=== PATIENT | male | born 1960 | race Caucasian/White ===

== ENCOUNTER → 2024-04-24 | Outpatient (CLI) | payer MEDICARE, SELFPAY ==
--- NOTE | 2024-04-24 12:30 | CT_ITS ---
STUDY: CT LEFT SHOULDER REASON FOR EXAM: Male, 64 years old. OSTEO LEFT SHOULDER RADIATION DOSAGE (If Supplied By Facility): CTDIvol = ( 24.48 ) mGy, DLP = ( 574.93 ) mGycm TECHNIQUE: The patient was scanned in a multi detector CT scanner. High resolution transaxial imaging was performed without the administration of intravenous contrast material. Sagittal and coronal images were reconstructed. Individualized dose optimization techniques were used for this CT. COMPARISON: None. FINDINGS: There is severe glenohumeral arthrosis with joint space narrowing, marginal osteophyte formation, and subchondral cyst formation in the superior glenoid. Intact glenoid neck and visualized scapula. Intact humeral head, neck and tuberosities. Normal coracoid process. Intact visualized lateral clavicle. There is acromioclavicular arthrosis with cystic change in the distal clavicle. There is a Type II morphology (curved), with a neutral orientation. Normal visualized muscles and soft tissue structures. CT/Extremity Upper without Contra IMPRESSION: Severe glenohumeral arthrosis. Acromioclavicular arthrosis with cystic changes in the distal clavicle. Electronically Signed: Jose R Rubio MD at 13:35 EST ,
== END | disposition home or self-care (01) ==
LOC: CT 11:56
PROVIDERS: PCP Family Medicine; Referring Provider Student in an Organized Health Care Education/Training Program; Visit Provider Student in an Organized Health Care Education/Training Program
DX: M19.012 Primary osteoarthritis, left shoulder (principal); M25.512 Pain in left shoulder

== ENCOUNTER 2024-05-18 05:05 | Day surgery (SDC) | payer MEDICARE, SELFPAY ==
--- NOTE | 2024-04-24 12:22 | EKG12_ITS ---
Test Reason : PRE OP Blood Pressure : */* mmHG Vent. Rate : 74 BPM Atrial Rate : 74 BPM P-R Int : 178 ms QRS Dur : 78 ms QT Int : 384 ms P-R-T Axes : 40 -12 23 degrees QTcB Int : 426 ms Normal sinus rhythm Septal infarct , age undetermined Abnormal ECG Confirmed by ERMIAS KUMARI, PORSHA ([id number]), web editor DUANE COOPER ([id number]) on 04/24/2024 2:24:45 PM Referred By: YRN Confirmed By: PORSHA MONSON MD
--- NOTE | 2024-04-28 16:10 | PAT.ANESEVAL ---
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 When Was Last Pacemaker Check QUESTION #4 FULL TEXT: You/Your Family Experience fever (hyperthermia) with Anesthesia Last Oral Intake Last Oral intake: Last Oral Intake NPO since Meds taken in AM with sips of water? Meds patient instructed to take am of surgery PONV PONV - maintenance machine repairer: PONV - maintenance machine repairer Female No 04/19/24 13:27 HX of Motion Sickness No 04/19/24 13:27 HX of N/V After Surgery No 04/19/24 13:27 Non-Smoker No 04/19/24 13:27 Duration of Surgery greater Yes 04/19/24 13:27 than 60 minutes Number of Risk Factors 1 04/19/24 13:27 PONV Score Low Risk 04/19/24 13:27 Respiratory Assessment Respiratory Assessment - maintenance machine repairer: Respiratory Tract Infection Hx - maintenance machine repairer Hx Respiratory Tract Infection No 04/19/24 13:27 STOP Sleep Apnea STOP Sleep Apnea - maintenance machine repairer: STOP Sleep Apnea - maintenance machine repairer Hx Hypertension Yes: CONTROLLED WITH MEDS 04/19/24 13:27 Hx Sleep Apnea No 04/19/24 13:27 CPAP BIPAP Do you snore loudly (louder Yes 04/19/24 13:27 than talking or can be heard Do you often feel tired/ No 04/19/24 13:27 fatigued/ sleepy during daytime? Has anyone observed you stop No 04/19/24 13:27 breathing during sleep? STOP Results Positive 04/19/24 13:27 QUESTION #5 FULL TEXT : Do you snore loudly (louder than talking or can be heard through closed doors)? 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 Specify any problems Hx of Preganancy in last 3 N/A 04/19/24 13:27 Months Nurse Filling Out Transfusion DSCHRIBER 04/19/24 13:27 & Questions: Date: 04/19/24 04/19/24 13:27 Time: 13:29 04/19/24 13:27 Patient unable to answer at this time (ie. confused, unrespo /Reproduction History /Reproductive History - maintenance machine repairer: /Reproductive Hx- maintenance machine repairer Hx Now No 04/19/24 13:27 Gestational Age (in weeks): EDC: Hx Hx Para Hx Section SAB No 04/19/24 13:27 ON LICENSE OF [facility] Medical History (Updated 04/19/24 @ 13:35 by Emilee Ellison) Wears glasses Wears partial dentures Wears dentures Marijuana use Alcohol use Thyroid disease Rheumatoid arthritis Fatty liver Easy bruising Back pain Gastric reflux Smoker History of pain when walking Hypertension Home Medications ?Medication ?Instructions ?Recorded ?Last Taken ?Type amlodipine 10 mg tablet 10 mg PO DAILY 04/19/24 Unknown History ascorbic acid (vitamin C) 500 mg 1 g PO DAILY 04/19/24 Unknown History tablet (C-500) calcium 315 mg (as 1 tab PO DAILY 04/19/24 Unknown History citrate)-vitamin D3 6.25 mcg (250 unit) tablet (Citracal + Vitamin D Maximum) cinnamon bark 500 mg capsule 1,000 mg PO BID 04/19/24 Unknown History (Cinnamon) echinacea 125 mg capsule 125 mg PO DAILY 04/19/24 Unknown History levothyroxine 125 mcg tablet 125 mcg PO DAILY 04/19/24 Unknown History lisinopril 20 1 tab PO BID 04/19/24 Unknown History mg-hydrochlorothiazide 12.5 mg tablet multivitamin (Daily Multi-Vitamin 1 tab PO DAILY 04/19/24 Unknown History tablet) omega-3 fatty acids 500 mg PO DAILY 04/19/24 Unknown History omeprazole 20 mg capsule,delayed 20 mg PO DAILY 04/19/24 Unknown History release Allergy/AdvReac Type Severity Reaction Status Date / Time No Known Allergies Allergy Verified 04/19/24 13:19 Surgical History (Updated 04/19/24 @ 13:35 by Emilee Ellison) Hx of colonoscopy Social History Smoking Status: Current every day smoker tobacco type: cigarettes Audit: Pertinent Findings Pertinent Findings EKG Perinent findings: April 24, 2024. Normal sinus rhythm. Septal infarct age undetermined. Recommendation Anesthesia Recommendation Anesthesia recommendation: OPTIMIZED for anesthesia
[2024-04-29 08:48] LABS: Absolute Lymphocyte Count 2.14 X10^3/uL (0.83-4.51); Absolute Neutrophil Count 4.3 X10^3/uL (2.0-7.7); Basophil# 0.09 X10^3/uL; Basophil% 1.2 % (0-1); Eosinophil# 0.22 X10^3/uL; Eosinophils% 2.9 % (0-5); Hematocrit 45.1 % (40-54); Lymphocyte # 2.14 X10^3/ul (0.83-4.51); Lymphocyte % 28.2 % (19-41); Mean Corp Hgb Conc 35.5 g/dL (32-36); Mean Corpuscular Hgb 33.8 pg (27.0-32.0); Mean Corpuscular Volume 95.3 fL (80-94); Mean Platelet Vol. 9.6 fl (6.2-12.0); Monocyte# 0.81 X10^3/uL; Monocyte% 10.7 % (0-10); NRBC Flagged by Analyzer 0 % (0-5); Neutrophil # 4.32 X10^3/uL (2.7-7.7); Neutrophil % 56.7 % (47-70); Platelet Count 290 K/mm3 (150-450); RBC Distribution Width CV 13.3 % (11.6-14.6); RBC Distribution Width SD 47.2 fl (35.1-43.9); Red Blood Count 4.73 M/mm3 (4.6-6.2); White Blood Count 7.6 K/mm3 (4.4-11.0)
[2024-04-29 08:55] LABS: Prothrombin Time (Protime)PT. 12.9 SECONDS (11.7-14.9)
[2024-04-29 08:56] LABS: Partial Thromboplast Time 26.7 Seconds (24.1-36.2)
[2024-04-29 09:24] LABS: AST(SGOT) 42 U/L (15-37); Alanine Aminotransfer ALT/SGPT 56 U/L (16-61); Albumin, Serum 4.4 g/dL (3.2-5.0); Alkaline Phosphatase 47 U/L (45-117); Bilirubin, Direct 0.31 mg/dL (0.00-0.30); Globulin 4.3 g/dL (2.2-4.2); Magnesium 2.2 mg/dL (1.6-2.6); Protein, Total 8.7 g/dL (6.4-8.2)
[2024-04-29 10:01] LABS: Anion Gap 11 (5-15); BUN 13 mg/dL (7-18); BUN/Creat Ratio 15.9 RATIO (10-20); Calcium,Total 10.1 mg/dL (8.5-10.1); Chloride 92 mmol/L (98-107); Creatinine, Serum 0.82 mg/dL (0.70-1.30); EST Glomerular Filtration Rate 100 mL/min (>60); Est Glom Filt Rate - Afr Amer 121 mL/min (>60); Glucose 120 mg/dL (74-106); Potassium 3.9 mmol/L (3.5-5.1); Sodium Level 129 mmol/L (136-145)
--- NOTE | 2024-05-01 10:33 | PAT.ANE_ITS ---
Pre-Assessment Diagnosis/Proposed Procedure Planned Operative Procedure(s): LEFT REVERSE TOTAL SHOULDER ARTHROPLASTY Anesthesia History Anesthesia History - invasive physician: Anesthesia History - invasive physician Hx Hospitalization No 04/19/24 13:27 Any Problems With Anesthesia No 04/19/24 13:27 Cholinesterase deficiency No 04/19/24 13:27 You/Your Family Experience No 04/19/24 13:27 fever (hyperthermia) with Relationship Recent Exposure to Contagious Disease Does patient have nerve No 04/19/24 13:27 stimulator Patient instructed to have device shut off --Does patient have Pacemaker or ICD? When Was Last Pacemaker Check QUESTION #4 FULL TEXT: You/Your Family Experience fever (hyperthermia) with Anesthesia Last Oral Intake Last Oral intake: Last Oral Intake NPO since Meds taken in AM with sips of water? Meds patient instructed to take am of surgery PONV PONV - invasive physician: PONV - invasive physician Female No 04/19/24 13:27 HX of Motion Sickness No 04/19/24 13:27 HX of N/V After Surgery No 04/19/24 13:27 Non-Smoker No 04/19/24 13:27 Duration of Surgery greater Yes 04/19/24 13:27 than 60 minutes Number of Risk Factors 1 04/19/24 13:27 PONV Score Low Risk 04/19/24 13:27 Respiratory Assessment Respiratory Assessment - invasive physician: Respiratory Tract Infection Hx - invasive physician Hx Respiratory Tract Infection No 04/19/24 13:27 STOP Sleep Apnea STOP Sleep Apnea - invasive physician: STOP Sleep Apnea - invasive physician Hx Hypertension Yes: CONTROLLED WITH MEDS 04/19/24 13:27 Hx Sleep Apnea No 04/19/24 13:27 CPAP BIPAP Do you snore loudly (louder Yes 04/19/24 13:27 than talking or can be heard Do you often feel tired/ No 04/19/24 13:27 fatigued/ sleepy during daytime? Has anyone observed you stop No 04/19/24 13:27 breathing during sleep? STOP Results Positive 04/19/24 13:27 QUESTION #5 FULL TEXT : Do you snore loudly (louder than talking or can be heard through closed doors)? Tobacco Use History Tobacco Use History - invasive physician: Tobacco Use History - invasive physician Tobacco Use Smoking Status Current every day smoker 04/19/24 13:27 Hx Tobacco Use Yes 04/19/24 13:27 Years Smoking Packs Smoked per Day Smoking Cessation Date was within the last 15 years Hx Smoking Cessation Date Hx Smoking Cessation Counseling Hematologic Medial History Hematologic Hx - invasive physician: Hematologic Medical Hx - manager change Hx of Blood Transfusion No 04/19/24 13:27 Hx of Transfusion in last 3 No 04/19/24 13:27 Months Date of Last Transfusion (if within last 3 months) Ever experience any problems No 04/19/24 13:27 with transfusion(s)? Specify any problems Hx of Preganancy in last 3 N/A 04/19/24 13:27 Months Nurse Filling Out Transfusion DSCHRIBER 04/19/24 13:27 & Questions: Date: 04/19/24 04/19/24 13:27 Time: 13:29 04/19/24 13:27 Patient unable to answer at this time (ie. confused, unrespo /Reproduction History /Reproductive History - invasive physician: /Reproductive Hx- invasive physician Hx Now No 04/19/24 13:27 Gestational Age (in weeks): EDC: Hx Hx Para Hx Section SAB No 04/19/24 13:27 [facility] Medical History (Updated 04/19/24 @ 13:35 by Emilee Ellison) Wears glasses Wears partial dentures Wears dentures Marijuana use Alcohol use Thyroid disease Rheumatoid arthritis Fatty liver Easy bruising Back pain Gastric reflux Smoker History of pain when walking Hypertension Home Medications ?Medication ?Instructions ?Recorded ?Last Taken ?Type amlodipine 10 mg tablet 10 mg PO DAILY 04/19/24 Unknown History ascorbic acid (vitamin C) 500 mg 1 g PO DAILY 04/19/24 Unknown History tablet (C-500) calcium 315 mg (as 1 tab PO DAILY 04/19/24 Unknown History citrate)-vitamin D3 6.25 mcg (250 unit) tablet (Citracal + Vitamin D Maximum) cinnamon bark 500 mg capsule 1,000 mg PO BID 04/19/24 Unknown History (Cinnamon) echinacea 125 mg capsule 125 mg PO DAILY 04/19/24 Unknown History levothyroxine 125 mcg tablet 125 mcg PO DAILY 04/19/24 Unknown History lisinopril 20 1 tab PO BID 04/19/24 Unknown History mg-hydrochlorothiazide 12.5 mg tablet multivitamin (Daily Multi-Vitamin 1 tab PO DAILY 04/19/24 Unknown History tablet) omega-3 fatty acids 500 mg PO DAILY 04/19/24 Unknown History omeprazole 20 mg capsule,delayed 20 mg PO DAILY 04/19/24 Unknown History release Allergy/AdvReac Type Severity Reaction Status Date / Time No Known Allergies Allergy Verified 04/19/24 13:19 Surgical History (Updated 04/19/24 @ 13:35 by Emilee Ellison) Hx of colonoscopy Social History Smoking Status: Current every day smoker tobacco type: cigarettes Audit: Pertinent Findings HISTORY of Pertinent Findings History of Pertinent Findings: EKG Pertinent Findings EKG Perinent findings April 24, 2024. Normal 04/28/24 16:10 sinus rhythm. Septal infarct age undetermined. Pertinent Findings Additional pertinent findings: Patients sodium is 129, in addition to other elevated liver function markers (tbili, dbili, AST). His previous sodium we have in our chart is from 2013 where it was normal. He has a hx of fatty liver disease and alcohol use. Current Visit Impressions Current Visit Impressions: Patients sodium is 129, in addition to other elevated liver function markers (tbili, dbili, AST). His previous sodium we have in our chart is from 2013 where it was normal. He has a hx of fatty liver disease and alcohol use. I would recommend that the patient follow up with his primary care physician in regards to these findings, and potentially see a vamp presser as he could have underlying livery dysfunction. Recommendation Anesthesia Recommendation Anesthesia recommendation: F/U recommended (patient should follow up with PCP in regards to hyponatremia with some elevated markers of liver dysfunx, given hx of alcohol use and fatty liver disease. ) Follow up Details Consult Recommendation: Yes Consult Rec Details: primary care physician Outside Record Recommendation: Yes Outside Record Rec Details: if the patient has had any labs done since 2013 it would be great to have those as a reference to see if this is acute hyponatremia or chronic hyponatremia
--- NOTE | 2024-05-01 15:56 | PAT.ANE_ITS ---
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 When Was Last Pacemaker Check QUESTION #4 FULL TEXT: You/Your Family Experience fever (hyperthermia) with Anesthesia Last Oral Intake Last Oral intake: Last Oral Intake NPO since Meds taken in AM with sips of water? Meds patient instructed to take am of surgery PONV PONV - clinical program consultant: PONV - clinical program consultant Female No 04/19/24 13:27 HX of Motion Sickness No 04/19/24 13:27 HX of N/V After Surgery No 04/19/24 13:27 Non-Smoker No 04/19/24 13:27 Duration of Surgery greater Yes 04/19/24 13:27 than 60 minutes Number of Risk Factors 1 04/19/24 13:27 PONV Score Low Risk 04/19/24 13:27 Respiratory Assessment Respiratory Assessment - clinical program consultant: Respiratory Tract Infection Hx - clinical program consultant Hx Respiratory Tract Infection No 04/19/24 13:27 STOP Sleep Apnea STOP Sleep Apnea - clinical program consultant: STOP Sleep Apnea - clinical program consultant Hx Hypertension Yes: CONTROLLED WITH MEDS 04/19/24 13:27 Hx Sleep Apnea No 04/19/24 13:27 CPAP BIPAP Do you snore loudly (louder Yes 04/19/24 13:27 than talking or can be heard Do you often feel tired/ No 04/19/24 13:27 fatigued/ sleepy during daytime? Has anyone observed you stop No 04/19/24 13:27 breathing during sleep? STOP Results Positive 04/19/24 13:27 QUESTION #5 FULL TEXT : Do you snore loudly (louder than talking or can be heard through closed doors)? 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 Specify any problems Hx of Preganancy in last 3 N/A 04/19/24 13:27 Months Nurse Filling Out Transfusion DSCHRIBER 04/19/24 13:27 & Questions: Date: 04/19/24 04/19/24 13:27 Time: 13:29 04/19/24 13:27 Patient unable to answer at this time (ie. confused, unrespo /Reproduction History /Reproductive History - clinical program consultant: /Reproductive Hx- clinical program consultant Hx Now No 04/19/24 13:27 Gestational Age (in weeks): EDC: Hx Hx Para Hx Section SAB No 04/19/24 13:27 [facility] Medical History (Updated 04/19/24 @ 13:35 by Emilee Ellison) Wears glasses Wears partial dentures Wears dentures Marijuana use Alcohol use Thyroid disease Rheumatoid arthritis Fatty liver Easy bruising Back pain Gastric reflux Smoker History of pain when walking Hypertension Home Medications ?Medication ?Instructions ?Recorded ?Last Taken ?Type amlodipine 10 mg tablet 10 mg PO DAILY 04/19/24 Unknown History ascorbic acid (vitamin C) 500 mg 1 g PO DAILY 04/19/24 Unknown History tablet (C-500) calcium 315 mg (as 1 tab PO DAILY 04/19/24 Unknown History citrate)-vitamin D3 6.25 mcg (250 unit) tablet (Citracal + Vitamin D Maximum) cinnamon bark 500 mg capsule 1,000 mg PO BID 04/19/24 Unknown History (Cinnamon) echinacea 125 mg capsule 125 mg PO DAILY 04/19/24 Unknown History levothyroxine 125 mcg tablet 125 mcg PO DAILY 04/19/24 Unknown History lisinopril 20 1 tab PO BID 04/19/24 Unknown History mg-hydrochlorothiazide 12.5 mg tablet multivitamin (Daily Multi-Vitamin 1 tab PO DAILY 04/19/24 Unknown History tablet) omega-3 fatty acids 500 mg PO DAILY 04/19/24 Unknown History omeprazole 20 mg capsule,delayed 20 mg PO DAILY 04/19/24 Unknown History release Allergy/AdvReac Type Severity Reaction Status Date / Time No Known Allergies Allergy Verified 04/19/24 13:19 Surgical History (Updated 04/19/24 @ 13:35 by Emilee Ellison) Hx of colonoscopy Social History Smoking Status: Current every day smoker tobacco type: cigarettes Audit: Pertinent Findings HISTORY of Pertinent Findings History of Pertinent Findings: EKG Pertinent Findings EKG Perinent findings April 24, 2024. Normal 04/28/24 16:10 sinus rhythm. Septal infarct age undetermined. Additional Pertinent Findings Additional pertinent findings Patients sodium is 129, in 05/01/24 10:47 addition to other elevated liver function markers ( tbili, dbili, AST). His previous sodium we have in our chart is from 2013 where it was normal. He has a hx of fatty liver disease and alcohol use. Pertinent Findings EKG Perinent findings: EKG done on April 24, 2024 shows normal sinus rhythm, septal infarct age on determined Additional pertinent findings: Patients sodium is 129, in addition to other elevated liver function markers (tbili, dbili, AST). His previous sodium we have in our chart is from 2013 where it was normal. He has a hx of fatty liver dis ease and alcohol use. Recommendation Anesthesia Recommendation Anesthesia recommendation: F/U recommended Follow up Details Cadiac/Pulmonary Imaging Recommendation: Yes Cadiac/Pulmonary Imaging Rec Details: can consider obtaining an echo vs stress test given patients abnormal EKG findings with age undetermined septal infarct Consult Recommendation: Yes Consult Rec Details: Patients sodium is 129, in addition to other elevated liver function markers (tbili, dbili, AST). His previous sodium we have in our chart is from 2013 where it was normal. He has a hx of fatty liver disease and alcohol use.
--- NOTE | 2024-05-02 06:07 | PAT.ANESEVAL ---
Pre-Assessment Diagnosis/Proposed Procedure Planned Operative Procedure(s): LEFT REVERSE TOTAL SHOULDER ARTHROPLASTY Anesthesia History Anesthesia History - mortgage loan specialist: Anesthesia History - mortgage loan specialist Hx Hospitalization No 04/19/24 13:27 Any Problems With Anesthesia No 04/19/24 13:27 Cholinesterase deficiency No 04/19/24 13:27 You/Your Family Experience No 04/19/24 13:27 fever (hyperthermia) with Relationship Recent Exposure to Contagious Disease Does patient have nerve No 04/19/24 13:27 stimulator Patient instructed to have device shut off --Does patient have Pacemaker or ICD? When Was Last Pacemaker Check QUESTION #4 FULL TEXT: You/Your Family Experience fever (hyperthermia) with Anesthesia Last Oral Intake Last Oral intake: Last Oral Intake NPO since Meds taken in AM with sips of water? Meds patient instructed to take am of surgery PONV PONV - mortgage loan specialist: PONV - mortgage loan specialist Female No 04/19/24 13:27 HX of Motion Sickness No 04/19/24 13:27 HX of N/V After Surgery No 04/19/24 13:27 Non-Smoker No 04/19/24 13:27 Duration of Surgery greater Yes 04/19/24 13:27 than 60 minutes Number of Risk Factors 1 04/19/24 13:27 PONV Score Low Risk 04/19/24 13:27 Respiratory Assessment Respiratory Assessment - mortgage loan specialist: Respiratory Tract Infection Hx - mortgage loan specialist Hx Respiratory Tract Infection No 04/19/24 13:27 STOP Sleep Apnea STOP Sleep Apnea - mortgage loan specialist: STOP Sleep Apnea - mortgage loan specialist Hx Hypertension Yes: CONTROLLED WITH MEDS 04/19/24 13:27 Hx Sleep Apnea No 04/19/24 13:27 CPAP BIPAP Do you snore loudly (louder Yes 04/19/24 13:27 than talking or can be heard Do you often feel tired/ No 04/19/24 13:27 fatigued/ sleepy during daytime? Has anyone observed you stop No 04/19/24 13:27 breathing during sleep? STOP Results Positive 04/19/24 13:27 QUESTION #5 FULL TEXT : Do you snore loudly (louder than talking or can be heard through closed doors)? Tobacco Use History Tobacco Use History - mortgage loan specialist: Tobacco Use History - mortgage loan specialist Tobacco Use Smoking Status Current every day smoker 04/19/24 13:27 Hx Tobacco Use Yes 04/19/24 13:27 Years Smoking Packs Smoked per Day Smoking Cessation Date was within the last 15 years Hx Smoking Cessation Date Hx Smoking Cessation Counseling Hematologic Medial History Hematologic Hx - mortgage loan specialist: Hematologic Medical Hx - manager quantitative Hx of Blood Transfusion No 04/19/24 13:27 Hx of Transfusion in last 3 No 04/19/24 13:27 Months Date of Last Transfusion (if within last 3 months) Ever experience any problems No 04/19/24 13:27 with transfusion(s)? Specify any problems Hx of Preganancy in last 3 N/A 04/19/24 13:27 Months Nurse Filling Out Transfusion DSCHRIBER 04/19/24 13:27 & Questions: Date: 04/19/24 04/19/24 13:27 Time: 13:29 04/19/24 13:27 Patient unable to answer at this time (ie. confused, unrespo /Reproduction History /Reproductive History - mortgage loan specialist: /Reproductive Hx- mortgage loan specialist Hx Now No 04/19/24 13:27 Gestational Age (in weeks): EDC: Hx Hx Para Hx Section SAB No 04/19/24 13:27 [facility] Medical History (Updated 04/19/24 @ 13:35 by Emilee Ellison) Wears glasses Wears partial dentures Wears dentures Marijuana use Alcohol use Thyroid disease Rheumatoid arthritis Fatty liver Easy bruising Back pain Gastric reflux Smoker History of pain when walking Hypertension Home Medications ?Medication ?Instructions ?Recorded ?Last Taken ?Type amlodipine 10 mg tablet 10 mg PO DAILY 04/19/24 Unknown History ascorbic acid (vitamin C) 500 mg 1 g PO DAILY 04/19/24 Unknown History tablet (C-500) calcium 315 mg (as 1 tab PO DAILY 04/19/24 Unknown History citrate)-vitamin D3 6.25 mcg (250 unit) tablet (Citracal + Vitamin D Maximum) cinnamon bark 500 mg capsule 1,000 mg PO BID 04/19/24 Unknown History (Cinnamon) echinacea 125 mg capsule 125 mg PO DAILY 04/19/24 Unknown History levothyroxine 125 mcg tablet 125 mcg PO DAILY 04/19/24 Unknown History lisinopril 20 1 tab PO BID 04/19/24 Unknown History mg-hydrochlorothiazide 12.5 mg tablet multivitamin (Daily Multi-Vitamin 1 tab PO DAILY 04/19/24 Unknown History tablet) omega-3 fatty acids 500 mg PO DAILY 04/19/24 Unknown History omeprazole 20 mg capsule,delayed 20 mg PO DAILY 04/19/24 Unknown History release Allergy/AdvReac Type Severity Reaction Status Date / Time No Known Allergies Allergy Verified 04/19/24 13:19 Surgical History (Updated 04/19/24 @ 13:35 by Emilee Ellison) Hx of colonoscopy Social History Smoking Status: Current every day smoker tobacco type: cigarettes Audit: Pertinent Findings HISTORY of Pertinent Findings History of Pertinent Findings: EKG Pertinent Findings EKG Perinent findings EKG done on April 24, 2024 05/01/24 16:05 shows normal sinus rhythm, septal infarct age on determined EKG Perinent findings April 24, 2024. Normal 04/28/24 16:10 sinus rhythm. Septal infarct age undetermined. Additional Pertinent Findings Additional pertinent findings Patients sodium is 129, in 05/01/24 16:05 addition to other elevated liver function markers ( tbili, dbili, AST). His previous sodium we have in our chart is from 2013 where it was normal. He has a hx of fatty liver disease and alcohol use. Additional pertinent findings Patients sodium is 129, in 05/01/24 10:47 addition to other elevated liver function markers ( tbili, dbili, AST). His previous sodium we have in our chart is from 2013 where it was normal. He has a hx of fatty liver disease and alcohol use. Recommendation Anesthesia Recommendation Anesthesia recommendation: OPTIMIZED for anesthesia (appears patients sodium levels have been stably on the lower side after reviewing previous levels) Follow up Details BMP Recommendation: No Cadiac/Pulmonary Imaging Recommendation: No
--- NOTE | 2024-05-10 08:13 | PAT.ANE_ITS ---
Pre-Assessment Diagnosis/Proposed Procedure Planned Operative Procedure(s): LEFT REVERSE TOTAL SHOULDER ARTHROPLASTY Anesthesia History Anesthesia History - manager general: Anesthesia History - manager general Hx Hospitalization No 04/19/24 13:27 Any Problems With Anesthesia No 04/19/24 13:27 Cholinesterase deficiency No 04/19/24 13:27 You/Your Family Experience No 04/19/24 13:27 fever (hyperthermia) with Relationship Recent Exposure to Contagious Disease Does patient have nerve No 04/19/24 13:27 stimulator Patient instructed to have device shut off --Does patient have Pacemaker or ICD? When Was Last Pacemaker Check QUESTION #4 FULL TEXT: You/Your Family Experience fever (hyperthermia) with Anesthesia Last Oral Intake Last Oral intake: Last Oral Intake NPO since Meds taken in AM with sips of water? Meds patient instructed to take am of surgery PONV PONV - manager general: PONV - manager general Female No 04/19/24 13:27 HX of Motion Sickness No 04/19/24 13:27 HX of N/V After Surgery No 04/19/24 13:27 Non-Smoker No 04/19/24 13:27 Duration of Surgery greater Yes 04/19/24 13:27 than 60 minutes Number of Risk Factors 1 04/19/24 13:27 PONV Score Low Risk 04/19/24 13:27 Respiratory Assessment Respiratory Assessment - manager general: Respiratory Tract Infection Hx - manager general Hx Respiratory Tract Infection No 04/19/24 13:27 STOP Sleep Apnea STOP Sleep Apnea - manager general: STOP Sleep Apnea - manager general Hx Hypertension Yes: CONTROLLED WITH MEDS 04/19/24 13:27 Hx Sleep Apnea No 04/19/24 13:27 CPAP BIPAP Do you snore loudly (louder Yes 04/19/24 13:27 than talking or can be heard Do you often feel tired/ No 04/19/24 13:27 fatigued/ sleepy during daytime? Has anyone observed you stop No 04/19/24 13:27 breathing during sleep? STOP Results Positive 04/19/24 13:27 QUESTION #5 FULL TEXT : Do you snore loudly (louder than talking or can be heard through closed doors)? 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 Specify any problems Hx of Preganancy in last 3 N/A 04/19/24 13:27 Months Nurse Filling Out Transfusion DSCHRIBER 04/19/24 13:27 & Questions: Date: 04/19/24 04/19/24 13:27 Time: 13:29 04/19/24 13:27 Patient unable to answer at this time (ie. confused, unrespo /Reproduction History /Reproductive History - manager general: /Reproductive Hx- manager general Hx Now No 04/19/24 13:27 Gestational Age (in weeks): EDC: Hx Hx Para Hx Section SAB No 04/19/24 13:27 [facility] Medical History (Updated 04/19/24 @ 13:35 by Emilee Ellison) Wears glasses Wears partial dentures Wears dentures Marijuana use Alcohol use Thyroid disease Rheumatoid arthritis Fatty liver Easy bruising Back pain Gastric reflux Smoker History of pain when walking Hypertension Home Medications ?Medication ?Instructions ?Recorded ?Last Taken ?Type amlodipine 10 mg tablet 10 mg PO DAILY 04/19/24 Unknown History ascorbic acid (vitamin C) 500 mg 1 g PO DAILY 04/19/24 Unknown History tablet (C-500) calcium 315 mg (as 1 tab PO DAILY 04/19/24 Unknown History citrate)-vitamin D3 6.25 mcg (250 unit) tablet (Citracal + Vitamin D Maximum) cinnamon bark 500 mg capsule 1,000 mg PO BID 04/19/24 Unknown History (Cinnamon) echinacea 125 mg capsule 125 mg PO DAILY 04/19/24 Unknown History levothyroxine 125 mcg tablet 125 mcg PO DAILY 04/19/24 Unknown History lisinopril 20 1 tab PO BID 04/19/24 Unknown History mg-hydrochlorothiazide 12.5 mg tablet multivitamin (Daily Multi-Vitamin 1 tab PO DAILY 04/19/24 Unknown History tablet) omega-3 fatty acids 500 mg PO DAILY 04/19/24 Unknown History omeprazole 20 mg capsule,delayed 20 mg PO DAILY 04/19/24 Unknown History release Allergy/AdvReac Type Severity Reaction Status Date / Time No Known Allergies Allergy Verified 04/19/24 13:19 Surgical History (Updated 04/19/24 @ 13:35 by Emilee Ellison) Hx of colonoscopy Social History Smoking Status: Current every day smoker tobacco type: cigarettes Audit: Pertinent Findings HISTORY of Pertinent Findings History of Pertinent Findings: EKG Pertinent Findings EKG Perinent findings EKG done on April 24, 2024 05/01/24 16:05 shows normal sinus rhythm, septal infarct age on determined EKG Perinent findings April 24, 2024. Normal 04/28/24 16:10 sinus rhythm. Septal infarct age undetermined. Additional Pertinent Findings Additional pertinent findings Patients sodium is 129, in 05/01/24 16:05 addition to other elevated liver function markers ( tbili, dbili, AST). His previous sodium we have in our chart is from 2013 where it was normal. He has a hx of fatty liver disease and alcohol use. Additional pertinent findings Patients sodium is 129, in 05/01/24 10:47 addition to other elevated liver function markers ( tbili, dbili, AST). His previous sodium we have in our chart is from 2013 where it was normal. He has a hx of fatty liver disease and alcohol use. Pertinent Findings Additional pertinent findings: Latest sodium performed on May 09, 2024 is 133. Recommendation Anesthesia Recommendation Anesthesia recommendation: OPTIMIZED for anesthesia
[2024-05-18] VITALS (9 sets, daily range): BP systolic 123–154; BP diastolic 76–98; PULSE 61–70; RESP 12–16; TEMP 36.1–36.9; O2SAT 93–100; BMI 31.7
[2024-05-18] MEDS: Magnesium 1 GM over 15 mins IV (06:12)
[2024-05-18] MEDS: Lactated Ringers 1,000 ML 999 ML IV ×2 (06:12→10:08)
[2024-05-18] MEDS: Celecoxib 200 MG Capsule 400 MG PO (06:13)
[2024-05-18] MEDS: Gabapentin 600 MG Tablet PO (06:13)
[2024-05-18] MEDS: Acetaminophen 500 MG Tablet 1000 MG PO (06:13)
--- NOTE | 2024-05-18 06:35 | PRE.ANES_ITS ---
ASA Classification* ASA Classification ASA Classification: 3 Assessment & Plan Anesthesia* Anesthesia Assessment Anesthesia Assessment: Discussed sedation and/or anesthesia options, risks, benefits, and alternatives with patient/parents/legal guardian/POA. Questions invited. The patient/parents/legal guardian/POA seems to understand and agrees to proceed with anesthesia plan. Reviewed the physical assessment, medical history, allergy history and patient home medications list prior to surgery/procedure/anesthetic and documented any changes. Performed airway and anesthesia risk assessments. Anesthesia Type Anesthesia Type: General and Block (Patient is consented for interscalene block.) History Source History Obtained from:: Patient and Chart Anesthesia Focused Assessment* Temperature: 98.4 F Pulse Rate: 70 Blood Pressure: 123/76 Respiratory Rate: 16 Pulse Ox: 96 Oxygen Delivery Method: Room Air Airway Assessment Mouth opens: >3 cm Mallampati Score: IV Teeth Condition: Dentures (Upper dentures are out.) and Partial (Lower partials out.) Neck Range of motion (ROM): Limited ROM Focused Labs Anesthesia Preop lab: CBC WBC 7.6 K/mm3 (4.4-11.0) 04/29/24 08:31 04/29/24 RBC 4.73 M/mm3 (4.6-6.2) 04/29/24 08:04/29/24 Hgb 16.0 g/dL (13.0-16.5) 04/29/24 08:31 04/29/24 Hct 45.1 % (40-54) 04/29/24 08:31 04/29/24 Plt Count 290 K/mm3 (150-450) 04/29/24 08:31 04/29/24 CHEMISTRY Potassium 3.9 mmol/L (3.5-5.1) 04/29/24 08:31 04/29/24 Sodium 129 mmol/L (136-145) L 04/29/24 08:31 04/29/24 Magnesium 2.2 mg/dL (1.6-2.6) 04/29/24 08:31 04/29/24 BUN 13 mg/dL (7-18) 04/29/24 08:31 04/29/24 Creatinine 0.82 mg/dL (0.70-1.30) 04/29/24 08:04/29/24 Glucose 120 mg/dL (74-106) H 04/29/24 08:31 04/29/24 TSH 1.960 uIU/mL (0.358-3.740) 04/29/24 08:31 04/12 12/04 COAG PT 12.9 SECONDS (11.7-14.9) 04/29/24 08:31 Pre-Assessment Diagnosis/Proposed Procedure Planned Operative Procedure(s): LEFT REVERSE TOTAL SHOULDER ARTHROPLASTY Anesthesia History Anesthesia History - translational specialist: Anesthesia History - translational specialist Hx Hospitalization No 04/19/24 13:27 Any Problems With Anesthesia No 04/19/24 13:27 Cholinesterase deficiency No 04/19/24 13:27 You/Your Family Experience No 04/19/24 13:27 fever (hyperthermia) with Relationship Recent Exposure to Contagious No 05/18/24 06:00 Disease Does patient have nerve No 04/19/24 13:27 stimulator Patient instructed to have device shut off --Does patient have Pacemaker No 05/18/24 06:03 or ICD? When Was Last Pacemaker Check QUESTION #4 FULL TEXT: You/Your Family Experience fever (hyperthermia) with Anesthesia Last Oral Intake Last Oral intake: Last Oral Intake NPO since 00:00 05/18/24 06:03 Meds taken in AM with sips of Yes 05/18/24 06:03 water? Meds patient instructed to take am of surgery PONV PONV - translational specialist: PONV - translational specialist Female No 04/19/24 13:27 HX of Motion Sickness No 04/19/24 13:27 HX of N/V After Surgery No 04/19/24 13:27 Non-Smoker No 04/19/24 13:27 Duration of Surgery greater Yes 04/19/24 13:27 than 60 minutes Number of Risk Factors 1 04/19/24 13:27 PONV Score Low Risk 04/19/24 13:27 Height & Weight Height & Weight: Anesthesia: Height & Weight Height 5 ft 8 in 05/18/24 06:03 Weight: 94.801 kg 05/18/24 06:03 Body Mass Index (BMI) 31.7 05/18/24 06:03 Respiratory Assessment Respiratory Assessment - translational specialist: Respiratory Tract Infection Hx - translational specialist Hx Respiratory Tract Infection No 04/19/24 13:27 STOP Sleep Apnea STOP Sleep Apnea - translational specialist: STOP Sleep Apnea - translational specialist Hx Hypertension Yes: CONTROLLED WITH MEDS 04/19/24 13:27 Hx Sleep Apnea No 04/19/24 13:27 CPAP BIPAP Do you snore loudly (louder Yes 04/19/24 13:27 than talking or can be heard Do you often feel tired/ No 04/19/24 13:27 fatigued/ sleepy during daytime? Has anyone observed you stop No 04/19/24 13:27 breathing during sleep? STOP Results Positive 04/19/24 13:27 QUESTION #5 FULL TEXT : Do you snore loudly (louder than talking or can be heard through closed doors)? Tobacco Use History Tobacco Use History - translational specialist: Tobacco Use History - translational specialist Tobacco Use Smoking Status Current every day smoker 04/19/24 13:27 Hx Tobacco Use Yes 04/19/24 13:27 Years Smoking Packs Smoked per Day Smoking Cessation Date was within the last 15 years Hx Smoking Cessation Date Hx Smoking Cessation Counseling Any additional information?: Yes Smoking Status: Current every day smoker (Patient did not smoke today) Hematologic Medial History Hematologic Hx - translational specialist: Hematologic Medical Hx - clinical trials assistant Hx of Blood Transfusion No 04/19/24 13:27 Hx of Transfusion in last 3 No 04/19/24 13:27 Months Date of Last Transfusion (if within last 3 months) Ever experience any problems No 04/19/24 13:27 with transfusion(s)? Specify any problems Hx of Preganancy in last 3 N/A 04/19/24 13:27 Months Nurse Filling Out Transfusion DSCHRIBER 04/19/24 13:27 & Questions: Date: 04/19/24 04/19/24 13:27 Time: 13:29 04/19/24 13:27 Patient unable to answer at this time (ie. confused, unrespo /Reproduction History /Reproductive History - translational specialist: /Reproductive Hx- translational specialist Hx Now No 04/19/24 13:27 Gestational Age (in weeks): EDC: Hx Hx Para Hx Section SAB No 04/19/24 13:27 Active Medications Active Medications: Current Medications Generic Name Dose Route Start Last Admin Trade Name Freq PRN Reason Stop Dose Admin Acetaminophen 1,000 mg 05/18/24 07:30 05/18/24 06:13 Acetaminophen 500 Mg Tablet PO 05/18/24 07:31 1,000 mg X1 ONE Administration Celecoxib 400 mg 05/18/24 07:30 05/18/24 06:13 Celecoxib 200 Mg Capsule PO 05/18/24 07:31 400 mg X1 ONE Administration Sodium Chloride 77.4 ml/ 0 ml 05/18/24 07:30 Ropivacaine 200 mg/ OPERA.SITE 05/18/24 07:31 Epinephrine HCl 0.6 mg/ X1 ONE Ketorolac Tromethamine 30 mg/ Morphine Sulfate 5 mg Dexamethasone Sodium Phosphate 10 mg 05/18/24 07:30 Dexamethasone 10 Mg/Ml Vial IV 05/18/24 07:31 X1 ONE Gabapentin 600 mg 05/18/24 07:30 05/18/24 06:13 Gabapentin 600 Mg Tablet PO 05/18/24 07:31 600 mg X1 ONE Administration Lactated Ringer's 1,000 mls @ 999 mls/hr 05/18/24 07:30 05/18/24 06:12 IV 05/18/24 08:30 999 mls/hr .Q1H1M SERA Administration Cefazolin Sodium 2 gm/ N/A 20 mls @ 400 mls/hr 05/18/24 07:30 IV 05/18/24 07:32 PREOP ONE Tranexamic Acid 1,000 mg/ 110 mls @ 660 mls/hr 05/18/24 07:30 Sodium Chloride IV 05/18/24 07:39 X1 ONE Lactated Ringer's 1,000 mls @ 999 mls/hr 05/18/24 08:30 IV 05/18/24 09:30 .Q1H1M SERA Lactated Ringer's 1,000 mls @ 125 mls/hr 05/18/24 09:30 IV 05/18/24 17:29 .Q8H SERA Magnesium Sulfate 1 gm/ 102 mls @ 408 mls/hr 05/18/24 07:30 05/18/24 06:12 Dextrose IV 05/18/24 07:44 408 mls/hr X1 ONE Administration Lactated Ringer's 1,000 mls @ 75 mls/hr 05/18/24 06:30 IV 05/19/24 09:09 .[id number] [facility] Protocol Insulin Human Lispro 1 - 6 unit 05/18/24 07:30 Insulin Lispro 100 Unit/Ml Insuln.Pen SC 05/18/24 13:30 Q4H PRN PRN BG>/= 180, SEE PROTOCOL Protocol PFSH Medical History Wears glasses Wears partial dentures Wears dentures Marijuana use Alcohol use Thyroid disease Rheumatoid arthritis Fatty liver Easy bruising Back pain Gastric reflux Smoker History of pain when walking Hypertension Home Medications ?Medication ?Instructions ?Recorded ?Last Taken ?Type amlodipine 10 mg tablet 10 mg PO DAILY 04/19/2410/04 03:00 History ascorbic acid (vitamin C) 500 mg 1 g PO DAILY 04/19/24 05/13/24 History tablet (C-500) calcium 315 mg (as 1 tab PO DAILY 04/19/2405/06 History citrate)-vitamin D3 6.25 mcg (250 unit) tablet (Citracal + Vitamin D Maximum) cinnamon bark 500 mg capsule 1,000 mg PO BID 04/19/24 05/13/24 History (Cinnamon) echinacea 125 mg capsule 125 mg PO DAILY 04/19/2405/06 History levothyroxine 125 mcg tablet 125 mcg PO DAILY 04/19/24 05/18/24 03:00 History lisinopril 20 1 tab PO BID 04/19/24 History mg-hydrochlorothiazide 12.5 mg tablet multivitamin (Daily Multi-Vitamin 1 tab PO DAILY 04/1905/13/24 History tablet) omega-3 fatty acids 500 mg PO DAILY 04/19/2405/06 History omeprazole 20 mg capsule,delayed 20 mg PO DAILY 05/18/24 03:00 History release Allergy/AdvReac Type Severity Reaction Status Date / Time No Known Allergies Allergy Verified 05/18/24 05:58 Surgical History Hx of colonoscopy Social History Smoking Status: Current every day smoker (Patient did not smoke today) tobacco type: cigarettes Review of Systems (Anesthesia) ROS Narrative System reviewed and no additional complaints, except as documented.
[2024-05-18 06:44] LABS: Bedside Glucose 118 mg/dL (74-106)
[2024-05-18] MEDS: Lidocaine 2% /Epi 1:100 (20ml) 20 ML VIAL (06:47)
--- NOTE | 2024-05-18 07:30 | SHO_PTH ---
PATIENT: NYDIA PRIDE LOC: [facility] U#:[id number] AGE/SX: 64/M ROOM: RE05/18/[address]: Dr. Talon De Leon DO : 1960 BED: DIS: 05/18/2024 SPEC #: [id number] RECD: 05/18/24 10:23 STATUS: ELMO REWinsome #: [id number] RODOLFO: 05/18/24 07:[address]: Talon De Leon DEPT: SURGICAL PATHOLOGY RECD BY: Jeremías Cotton ENTERED: 05/18/24 11:17 SP TYPE: HUMERUS OTHR DR: Dr. Gera Neal MD Tissues: Humerus, NOS Procedures: Decalcification bone/plaque Surgery Specimen Level IV HEADER OPERATION: Total shoulder replacement, reverse PRE-OP DIAGNOSIS: Left shoulder glenohumeral arthritis TISSUE SUBMITTED: Left humeral head MICROSCOPIC DIAGNOSIS Bone and tissue left shoulder, total shoulder replacement/resection: Humeral head with degenerative osteoarthritic changes. JENNIFER. 05/24/2024 MICROSCOPIC DESCRIPTION Slides are reviewed. GROSS DESCRIPTION Received is one container labeled with the patient's name and designated bone and soft tissue. The specimen consists of a humeral head measuring 6 x 6 x 3 cm. The articular surface shows areas of erosion, eburnation and osteophyte formation. No soft tissue is identified. Net Sorter sections are submitted in one cassette after decalcification. / SJ: 05/18/2024 TC:5 CPT: 87253, 49372
[2024-05-18] MEDS: Cefazolin 2 GM in Syringe 10 ML IV (07:45)
[2024-05-18] MEDS: TXA 1000mg in NS100 100ml (IVPB at Incision) 660 MG IV (07:50)
[2024-05-18] MEDS: dexAMETHasone 10 MG/ML Vial IV (07:50)
--- NOTE | 2024-05-18 09:52 | RAD_ITS ---
EXAM: XR Left Shoulder Complete, 2 or More Views CLINICAL INDICATION: TECHNIQUE: Two or more views of the left shoulder. COMPARISON: No relevant prior studies available. FINDINGS: BONES/JOINTS: Total shoulder replacement. Intact hardware. No acute fracture. No dislocation. SOFT TISSUES: Soft tissue emphysema and swelling. RAD/Shoulder min 2 Views IMPRESSION: Status post total shoulder replacement in anatomic position. Reading Location: [facility]
--- NOTE | 2024-05-18 09:53 | PCM.OPRPT ---
Operative Report (Standard) Operative Information Date of Procedure: 05/18/24 Pre-Operative Diagnosis: 1. Left shoulder glenohumeral osteoarthritis 2. Left shoulder rotator cuff insufficiency Post-Operative Diagnosis: 1. Left shoulder glenohumeral osteoarthritis 2. Left shoulder rotator cuff insufficiency Surgery/Procedure Performed: Left reverse total shoulder arthroplasty beer cooler: Yes Residential Caregiver: Cathy Henderson Tasks completed by assistant manager/embalmer: Opening & closing, Implanting device and Hemostasis: Electrocautery Additional nurseryman assistant?: No Type of Anesthesia: General/Regional RN Documented Start/Stop Times: Operation Date: 05/18/24 07:30 Case Time Into Pre-Op 05/18/24 05:34 Anesthesia Start 05/18/24 07:35 Into Room 05/18/24 07:35 Procedure Start 05/18/24 08:06 Procedure End 05/18/24 09:46 Anesthesia End 05/18/24 09:50 Out of Room 05/18/24 09:50 Procedure Start Time: 08:06 Procedure Stop Time: 09:46 Select all DRAINS/GRAFTS/IMPLANTS that apply: Prosthetic device Prosthetic device details: Tornier Aequalis PerFORM+ reversed baseplate 29 mm full wedge augment, standard glenosphere cobalt chrome 42 mm diameter, Tornier perform inlay stem size #3, + 3 mm retentive size number 3 42 mm diameter polyethylene insert, short central post and peripheral screws x2. Estimated Blood Loss: 100 cc Specimen collected: Yes Description of specimen(s) removed: Left humeral head Description of surgery: Patient arrived to [facility] morning of the procedure and was greeted by the same day surgery staff. Prior to his procedure, I greeted the patient in the preoperative holding area I identified the patient by name, record number, and date of . Informed consent was confirmed. The operative extremity was marked. All questions were answered to patient satisfaction. An interscalene block was administered prior to procedure by anesthesia staff for postoperative and intraoperative analgesia. At time of his procedure, patient was brought to the operative suite and positioned supine on a standard table with a beachchair attachment. General anesthesia was induced after all bony prominences were well-padded. Endotracheal tube was placed. After adequate anesthesia and securing the tube, we prepared the patient to be positioned in the beachchair position. A well-padded head of partner development was applied. The nonoperative extremity was placed in a well arm robertson. He was then brought into the beachchair position after we confirmed an appropriate blood pressure. We then spun the bed 45 degrees. The operative extremity was then prepared. In the butterfly wing of the bed was removed and a well-padded torso strap was applied to secure the patient to the bed. The operative extremity was now free. We then prepped and draped the right upper extremity in normal, sterile orthopedic fashion. We then performed a timeout with all parties in attendance in agreement with the side, site, and operation be performed. 2 g Ancef was administered prior to incision by anesthesia staff, as well as 1 g TXA IV. No concerns were voiced and we elected to proceed. I first marked a standard deltopectoral incision just lateral to the coracoid process in line with the long axis of the humerus. Skin was sharply incised with 10 blade scalpel. I then dissected bluntly through the subcutaneous layers and found the fat stripe between the deltoid and pectoralis major. The cephalic vein was then identified and protected. It was retracted laterally with the deltoid. I then bluntly dissected underneath the deltoid with a Graham elevator. Lisa retractor was placed. The upper 1 cm of the pectoralis major was released. I then identified the long head of the biceps tendon in the intertubercular groove. This was tenodesed in situ with #2 FiberWire. I then amputated the biceps proximal to the tenodesis site and followed the tendon to the supraglenoid tubercle where it was amputated. This identified the lesser and greater tuberosities. The the anterior cable portion of the supraspinatus was torn and retracted with an exposed greater tuberosity. I then performed a subscapularis peel while rotating the humerus externally. I tagged the subscapularis for possible repair later with a tagging suture. Humeral head was then dislocated anteriorly. Appropriate access to the humeral head was confirmed. I then subluxed the humeral head posteriorly with a Fukuda retractor placed around the posterior lip of the glenoid. Inferior capsule was tension. I was able to palpate the axillary nerve. Inferior capsule was then released to the 4 o'clock position of the glenoid face. 3 sided subscapularis release was performed with Bovie cautery. I then remove the Fukuda retractor and redislocated the shoulder anteriorly. I then made a anatomic neck cut of the cartilaginous surface of the humeral head. Sizing plate for a size # 3 stem was utilized to determine appropriate reaming size. A central pin was placed engaging the lateral cortex of the humerus. A size # 3 reamer was used to ream the humeral metaphysis and prepare for the inlay stem. A canal finding reamer was utilized prior to sequential broaching to a size # 3 short stem with excellent rotational and axial purchase in the humerus. I remove the broach handle left the size # [address] I then subluxed the humerus posterior to the glenoid. I then placed retractors around the posterior and anterior glenoid to expose the glenoid. Glenoid labrum was removed with Bovie cautery protecting the axillary nerve. We then used the wedge guide from Stephanie to position our centering pin, exiting approximately 25 mm from the joint surface along the anterior scapula. Guide was removed and pin was analyzed and compared to preoperative planning. It appeared to be in appropriate position. The wedge shaped reamer was then placed over top of the centering pin. I reamed a flat surface of the glenoid. We then removed the reamer and used the cannulated drill for the short central post. Post and baseplate was assembled on the back table. We then inserted the baseplate and central post the assembled baseplate to an appropriate depth with good press-fit purchase. A Ruby was used to confirm depth. Cortical screws then were placed in the peripheral holes with good purchase. The baseplate had excellent purchase and the entire scapula would rotate with rotation of the baseplate. We then impacted the 42 mm glenosphere with a standard eccentricity and tightened the locking screw mechanism. We then removed retractors and turned our attention back to the humerus. I placed a standard +3 millimeters retentive polyethylene insert. I then reduced the shoulder. There was excellent range of motion and stability in all planes of motion. We selected this as our final size. We removed trials from the humerus after final dislocation. I copiously irrigated the canal. Broach was placed on hand and then impacted to an appropriate depth. Final + 3 mm retentive polyethylene insert was placed. Final reduction was then performed. The subscapularis was then identified with a tagging suture. Repair would have been likely under undue tension and likely failed. I elected to not perform a subscapularis repair. We then copiously irrigated the wound with sterile Betadine and normal saline solution. We reapproximated the interval with 0 Vicryl suture. Subcutaneous layers were reapproximated with 2 -0 Vicryl suture. Skin was finally running V-Loc 3-0 Monocryl suture and Dermabond. A sterile silver Mepilex dressing was applied. Patient was then placed in an ultra sling. Patient tolerated procedure well without complication. He was positioned back in the supine position extubated in the operative suite. He was transferred to the [facility] and subsequently to PACU in stable condition. Need for skilled nurseryman assistant: Cathy Henderson PA-C was critical to the outcome of the case. During the course of the procedure the physician nurseryman assistant played a vital role. Her intimate knowledge of my steps in the procedure aided in safe and expedient completion of the procedure. The PA played a vital role in positioning particularly in obtaining the appropriate positioning. The PA was also vital in the retraction of soft tissues during the exposure and protecting vital structures. The PA was also vital and protecting soft tissues during times of bony cuts. She also played a vital role in closure with my direct supervision. The PA was also important during reduction and dislocation of the joint and trials intraoperatively. Intraoperative medications: 2 g Ancef IV, 1 g TXA IV x2 Post Operative Plan: Plan for discharge home after meeting same-day surgery criteria. Weightbearing: Nonweightbearing left upper extremity, okay for pendulums. Range of motion of wrist elbow and hand as tolerated. Antibiotics: 2 g Ancef IV prior to incision, Ancef dose prior to discharge DVT Prophylaxis: Aspirin enteric-coated 81 mg twice daily starting tomorrow Parks: None Dressing: Maintain silver dressing x7 days. Okay to shower dressing on started on day 4 X-Rays: 2 weeks postop in the office Pain Medication: Oxycodone Rx upon discharge Follow-up: 2 weeks post-operatively with me in the office Surgical Findings: Severe left primary glenohumeral joint osteoarthritis. Anterior cable tear of his supraspinatus. Stable left shoulder following final implantation and reduction Complications Complications: No Admit VTE Documentation VTE Present on Admission: No VTE Mechan Device Prophylaxis: SCD's VTE Pharm Prophylaxis ordered?: Yes
--- NOTE | 2024-05-18 10:00 | PCM.POST.ANE ---
Anesthesia: Postop Eval I Current Vital Signs Temperature: 96.9 F Pulse Rate: 70 Blood Pressure: 150/87 Respiratory Rate: 16 Pulse Ox: 95 Assessment Airway patent: Yes Spontaneous unlabored respirations: Yes nausea: No Vomiting: No Anesthesia Complication: No Fluid Hydration Crystalloid volume administer (ml): 500 Total IV fluid infused: 500 Progress Note Anesthesia document: Postop Eval 1 completed: Yes
--- NOTE | 2024-05-18 10:32 | POSTOPAN2_ITS ---
Anesthesia Postop Eval I Sum Postop Eval Completion status Anesthesia document: Postop Eval 1 completed: Yes Anesthesia Postop Eval I Summary Anesthesia Postop Eval I Summary: Anesthesia Postop Eval I: Assessment Summary Airway patent Yes 05/18/24 10:31 MANAGEMENT [email or web address] Spontaneous unlabored Yes 05/18/24 10:31 MANAGEMENT [email or web address].[email or web address] respirations Mental status nausea No 05/18/24 10:31 MANAGEMENT [email or web address].[email or web address] Vomiting No 05/18/24 10:31 MANAGEMENT [email or web address].CSIR Anesthesia Postop Eval I: Fluid Summary Crystalloid volume administer 500 05/18/24 10:31 MANAGEMENT [email or web address].CSIR (ml) Colloids volume administered ( ml) Blood Product volume administered (ml) Total IV fluid infused 500 05/18/24 10:31 MANAGEMENT SCIENTIST.CSIR Anesthesia Postop Eval I: Summary Notes Anesthesia Complication No 05/18/24 10:31 MANAGEMENT SCIENTIST.CSIR Anesthesia Complication Comment: Post-operative progress note Anesthesia: Postop Eval II Evaluation Mental status: Awake and Calm Pain Level: 2 nausea: No Vomiting: No
--- NOTE | 2024-05-18 10:32 | PCM.POSTANE2 ---
Anesthesia Postop Eval I Sum Postop Eval Completion status Anesthesia document: Postop Eval 1 completed: Yes Anesthesia Postop Eval I Summary Anesthesia Postop Eval I Summary: Anesthesia Postop Eval I: Assessment Summary Airway patent Yes 05/18/24 10:31 CLOSING MANAGER.[email or web address] Spontaneous unlabored Yes 05/18/24 10:31 CLOSING MANAGER.CSIR respirations Mental status nausea No 05/18/24 10:31 CLOSING MANAGER.CSIR Vomiting No 05/18/24 10:31 CLOSING MANAGER.CSIR Anesthesia Postop Eval I: Fluid Summary Crystalloid volume administer 500 05/18/24 10:31 CLOSING MANAGER.CSIR (ml) Colloids volume administered ( ml) Blood Product volume administered (ml) Total IV fluid infused 500 05/18/24 10:31 CLOSING MANAGER.CSIR Anesthesia Postop Eval I: Summary Notes Anesthesia Complication No 05/18/24 10:31 CLOSING MANAGER.CSIR Anesthesia Complication Comment: Post-operative progress note Anesthesia: Postop Eval II Evaluation Mental status: Awake and Calm Pain Level: 2 nausea: No Vomiting: No
[2024-05-18] MEDS: Cefazolin 1 GM/50 ML BAG IV (11:36)
== END 2024-05-18 13:21 | disposition home or self-care (01) ==
LOC: SDC 05:14 → AC 05:15
PROVIDERS: Anesthesiology; PCP Family Medicine; Referring Provider Student in an Organized Health Care Education/Training Program; Visit Provider Student in an Organized Health Care Education/Training Program
PROC: (CPT 23472; principal; 2024-05-18 07:00)
DX: M19.012 Primary osteoarthritis, left shoulder (principal); M75.112 Incomplete rotator cuff tear or rupture of left shoulder, not specified as traumatic; I10 Essential (primary) hypertension; K21.9 Gastro-esophageal reflux disease without esophagitis; E07.9 Disorder of thyroid, unspecified; F17.210 Nicotine dependence, cigarettes, uncomplicated; Z79.890 Hormone replacement therapy; Z79.899 Other long term (current) drug therapy
CPT/HCPCS: 23472; 64415; 01638; 36415; 73030; 80048; 80076; 82962; 83735; 84443; 85025; 85610; 85730; 87081; 88305; 88311; 93005; 97167; C1713; C1776; J2405; J3475